=== PATIENT | male | born 1985 | race Caucasian/White ===

== ENCOUNTER 2019-04-10 18:57 | Emergency (ER) | payer MEDICARE ==
--- OUTSIDE RECORDS SUMMARY | 2019-04-10 19:10 | XMS REPORT ---
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, 05-12 unspecified Relevant diagnostic tests/laboratory data Narrative No Information Procedures Procedure Code CodeSystem Target Date of Status Service Device Device Device Name Site Procedure Delivery Code Name UID Location Psychother [id number] SNOMED-CT () 2019-02-27 completed Mental apy, 45 4 Health- minutes [place] with [address], [id number] [id number] Psychother [id number] SNOMED-CT () 2018-11-02 completed Mental apy, 45 4 Health- minutes [place] with [address], [id number] [phone] Psychother [id number] SNOMED-CT () 2018-11-16 completed Mental apy, 45 4 Health- minutes [place] with [address], [id number] [id number] Psychother [id number] SNOMED-CT () 2018-11-23 completed Mental apy, 45 4 Health- minutes [place] with [address], [id number] [id number] Psychother [id number] SNOMED-CT () 2018-11-29 completed Mental apy, 45 4 Health- minutes [place] with [facility] patient [address] [place] [address], [id number] [phone] SNOMED-CT () 2018-10-19 completed Mental Health- [place] [address], [phone] SNOMED-CT () 2018-12-25 [facility]- [address], [phone] Encounters/Encounter Diagnoses Encounter Encounter Diagnosis Diagnosis Name Diagnosis Date of Service Name Code Code CodeSystem Diagnosis Delivery Location Non-Billable [id number] Conduct SNOMED-CT 2019-03-05 Behavioral disorder, Health unspecified Clinic , , , Vital Signs No Information Social History Element Description Description Start End Code CodeSystem AdditionalInfo Date Date SexAssignedAtBirth Male 1984- M AdministrativeGender 04-16 Hospital Discharge Instructions Reason For Referral Medical Equipment FDA Assessments
--- OUTSIDE RECORDS SUMMARY | 2019-04-10 19:10 | XMS REPORT ---
:1985 Author Organization [facility] Care Team Providers Name Role Phone Cayden Fajardo Primary Care Physician Unavailable Allergies, Adverse Reactions, Alerts Allergy Code CodeSystem Reaction Severity Criticality Status Start Substance Date Moderate Medications Medication Medication Medication Start Stop Route Dose Status Fill Code CodeSystem Date Date Instructions RxNorm Problems Problem Name Code CodeSystem Alternate Alternate Start End Status Narrative Code CodeSystem Date Date Conduct [id number] SNOMED-CT Active disorder, 05-12 unspecified Relevant diagnostic tests/laboratory data Narrative No Information Procedures Procedure Code CodeSystem Target Date of Status Service Device Device Device Name Site Procedure Delivery Code Name UID Location Psychother [id number] SNOMED-CT () 2018-11-02 completed Mental apy, 45 4 Health- minutes [place] with [address], [id number] [id number] Psychother [id number] SNOMED-CT () 2018-11-16 completed Mental apy, 45 4 Health- minutes [place] with [address], [id number] [id number] Psychother [id number] SNOMED-CT () 2018-11-23 completed Mental apy, 45 4 Health- minutes [place] with [facility] patient [address] [place] [address], [id number] [phone] Psychother [id number] SNOMED-CT () 2018-11-29 completed Mental apy, 45 4 Health- minutes [place] with [address], [id number] [phone] SNOMED-CT () 2018-10-19 completed Mental Health- [address], [id number] SNOMED-CT () 2018-12-[address], [phone] Encounters/Encounter Diagnoses Encounter Name Encounter Diagnosis Diagnosis Diagnosis Date of Service Code Code Name CodeSystem Diagnosis Delivery Location [facility] - [id number] Conduct SNOMED-CT 2018-12-25 Behavioral Individual 30 disorder, Health min unspecified Clinic [address] [place] [address], [phone] Vital Signs No Information Social History Element Description Description Start End Code CodeSystem AdditionalInfo Date Date SexAssignedAtBirth Male 1984- M AdministrativeGender 2-24 Hospital Discharge Instructions Reason For Referral Medical Equipment FDA Assessments
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
[2019-04-10 21:23] VITALS: BP 122/86
== END 2019-04-10 21:23 | disposition home or self-care (01) ==
LOC: ED 18:57
DX: T59.811A Toxic effect of smoke, accidental (unintentional), initial encounter (principal); J70.5 Respiratory conditions due to smoke inhalation; Y92.002 Bathroom of unspecified non-institutional (private) residence as the place of occurrence of the external cause; Z91.013 Allergy to seafood; F17.200 Nicotine dependence, unspecified, uncomplicated
CPT/HCPCS: 71046; 99282